=== PATIENT | male | born 1960 | race Caucasian/White ===

== ENCOUNTER → 2017-03-05 | Outpatient (CLI) | payer OTHER ==
[~2017-03-05] MED LIST: ACETAMINOPHEN325 MG PO; ACETIC ACID 2%; ANUCORT-HC25 MG/SUPP PR; ASPIRIN81 M1 PO; ASPIRIN81 MG PO; AUGMENTIN400 MG PO; AUGMENTIN875 MG PO; BACID PO; CALCIUM CITRATE PO; CALCIUM CITRATE1 T15 PO; CICLOPIROX 8%; CLARITIN10 M2 PO; CLARITIN10 MG PO; CLINDAMYCIN 1% GEL; CLOBETASOL 0.05%; COLACE CLEAR50 MG PO; CORTISPORIN-TC10 M1 OT; CYMBALTA30 MG PO; DITROPAN5 MG PO; DOK100 MG PO; FENOFIBRATE145 M1 PO; FENOFIBRATE145 MG PO; FLOMAX0.4 M1 DOB; FLOMAX0.4 MG PO; FLONASE 0.05% N16 G1; FLONASE16 GM; GAS RELIEF; GAS RELIEF40 MG/0.1 PO; HYDROCORTISONE28 GM TOP; IBUPROFEN600 MG PO; LACTULOSE10 G/15 M2 PO; LACTULOSE10 G/15 ML PO; LESCOL PO; MEDROL4 MG/DOSE- PO; METOPROLOL TAR25 MG PO; MIRALAX17 G2 PO; MIRALAX255 GM PO; MOBIC PO; MONTELUKAST SOD10 MG PO; MYLICON40 MG/0.6 PO; NEXIUM PO; OFLOXACIN; OYSTER CALCIUM500 MG PO; PANTOPRAZOLE SO40 MG PO; PROSCAR5 MG PO; RANITIDINE HCL150 M1 PO; SINGULAIR PO; SINGULAIR5 MG PO; THERA TAB; THERAGRAN1 TAB PO; TRIAMCINOLON 0.1%; ZANTAC PO; ZETIA PO; ZZ-IMMUNOTHERAPY; [UNRECOGNIZED DRUG - OTHER]; [UNRECOGNIZED DRUG - OTHER]; [UNRECOGNIZED DRUG - OTHER] OP
== END | disposition home or self-care (01) ==
LOC: CSSDAY 10:03
DX: M81.0 Age-related osteoporosis without current pathological fracture (principal)
CPT/HCPCS: 96372; J0897